=== PATIENT | female | born 1940 | race Caucasian/White ===

== ENCOUNTER → 2018-05-30 10:05 | Outpatient (CLI) | payer OTHER, SELFPAY | PROVIDERS: PCP Family Medicine; Visit Provider Physician Assistant | DX: R30.0 Dysuria (principal) | CPT/HCPCS: 87077; 87086; 87186 ==

== ENCOUNTER 2018-06-15 08:55 | Emergency (ER) | payer OTHER, SELFPAY ==
[2018-06-15 09:05] VITALS: BP 137/77; PULSE 88; RESP 13; TEMP 36.8; O2SAT 99
--- NOTE | 2018-06-15 09:21 | ED.FEMALEGU ---
HPI - Female Genitourinary General Chief complaint: Urogenital-Female Stated complaint: UTI Time Seen by Provider: 06/15/18 08:58 Source: patient Mode of arrival: ambulatory Limitations: no limitations History of Present Illness HPI Narrative: Patient is a 78-year-old female here for evaluation of urinary frequency, urgency and lower abdominal pain. Back on 05/30 patient was seen in the walk-in clinic here at [facility] for the urinary frequency and urgency. Was diagnosed with a urinary tract infection. Was sent home on Macrobid. That culture came back is greater than 100,000 colony-forming units that was segura sensitive. Patient states that she did take all of the antibiotics. She states that the since then she has continued to have the urinary frequency and urgency. No fevers. No change in bowel habits. She states that she ?always has diarrhea ?no back pain. No vomiting. She states she does have hemorrhoids and occasionally has blood in her stool. Over the past couple days she has had bilateral lower abdominal pain. Does have a history of diverticulitis. She states she does not remember if this feels like prior diverticulitis pain Related Data Home Medications Medication Instructions Recorded Confirmed latanoprost 1 drp OPHTH HS #0 09/09/16 06/15/18 multivitamin [Multiple Vitamins] 1 tab PO QDAY #0 09/09/16 06/15/18 calcium carbonate [Tums] 1 dose PO PRN PRN 06/15/18 06/15/18 Previous Rx's Medication Instructions Recorded ciprofloxacin HCl 500 mg PO BID 7 Days #14 tab 06/15/18 fluconazole [Diflucan] 100 mg PO DAILY #2 tab 06/15/18 metronidazole [Flagyl] 500 mg PO TID 7 Days #21 tab 06/15/18 Allergies Allergy/AdvReac Type Severity Reaction Status Date / Time No Known Drug Allergies Allergy Verified 05/30/18 09:35 Review of Systems Constitutional Denies fatigue and Denies fever(s) ENT Ears, Nose, Mouth, and Throat: Denies vertigo Cardiovascular Denies chest pain and Denies dyspnea Respiratory Denies dyspnea Gastrointestinal Gastrointestinal: Reports abdominal pain, Denies melena, Denies change in bowel habits, Denies constipation, Denies cramping, Reports diarrhea, Denies nausea and Denies vomiting Genitourinary Denies hematuria, Reports dysuria, Reports urinary urgency and Denies vaginal discharge Musculoskeletal Denies myalgias and Denies arthralgias Integumentary/Breasts Denies rash and Denies wounds Neurologic Denies confusion and Denies vertigo Psychiatric Denies confusion Endocrine Denies fatigue Hematologic/Lymphatic Denies easy bleeding and Denies easy bruising PFSH Medical History Gastroesophageal reflux disease (Acute) Surgical History No pertinent past surgical history (Acute) Social History Smoking Status: Never smoker alcohol intake: never Exam Initial Vital Signs Initial Vital Signs: Vital Signs Temperature 98.2 F 06/15/18 09:05 Pulse Rate 88 06/15/18 09:05 Respiratory Rate 13 06/15/18 09:05 Blood Pressure 137/77 H 06/15/18 09:05 Pulse Oximetry 99 06/15/18 09:05 Const General: cooperative, healthy appearing, comfortable, well developed, well groomed and No acute distress Orientation: alert, awake and oriented x3 HENMT Head: normal to inspection and normocephalic Resp Effort & Inspection: normal respiratory effort Auscultation: clear to auscultation bilaterally Cardio Rate: regular rate Rhythm: regular rhythm GI Inspection: non-distended Palpation: soft, No firm and No tender Skin Lesions: no lesions Rashes: no rashes Neuro General: alert and awake Speech: speech normal Extrem General: normal to inspection and capillary refill normal Psych Appearance: grossly normal and well kempt Course Orders Ordered: ED Orders 06/15/18 09:05 Urinalysis and Microscopic Stat Urine Culture Stat Vital Signs - 8 hr 06/15/18 09:05 Temperature 98.2 F Pulse Rate 88 Respiratory Rate 13 Blood Pressure 137/77 H Pulse Oximetry 99 MDM - Female Genitourinary Lab Data Attestation: I reviewed the patient's lab results. Lab Results 06/15/18 Range/Units 09:05 Urine Color Yellow Urine Appearance Clear Urine pH 5.0 (4.5-8.0) Ur Specific [place] 1.010 (1.000-1.035) Urine Protein Negative (Negative) Urine Glucose (UA) Negative (Normal) g/dL Urine Ketones Negative (NEGATIVE) Urine Occult Blood 1+ H (Negative) Urine Nitrate Negative (Negative) Urine Bilirubin Negative (NEGATIVE) Urine Urobilinogen 0.2 (0.2) E.U./dL Ur Leukocyte Esterase Negative (NEGATIVE) Urine RBC 0-1/hpf (0-5/HPF) Urine WBC 0-1/hpf (0-5/HPF) Urine Bacteria Occasional (0-1) (None) Ur Culture Indicated? Cult not indicated Micro UA Comment Not Reportable MDM Narrative Medical decision making narrative: Patient's urinalysis today is not convincing for urinary tract infection however she states she feels like this is a urinary tract infection. The infection that she had a couple weeks ago was pansensitive E coli. Patient also states that this may be a diverticulitis. She does not have any symptoms consistent with a yeast infection however this may also be the cause of her symptoms. After discussion with the patient will hold on a CT scan for now. Will send home with Cipro which would treat a UTI and also diverticulitis. Also sent home with Flagyl. Will also give a course of Diflucan. Patient was given return precautions. She expressed understanding and agreement with plan Discharge Plan Departure Patient Disposition: Home, Self-Care Clinical Impression: Dysuria, Abdominal pain Instructions: DI for Abdominal Pain-Adult, DI for Dysuria -- Adult Activity Restrictions/Additional Instructions: Take all the medications as directed. Call your primary care doctor for a follow-up. Return to the emergency department for any new symptoms, worsening symptoms, fevers, inability to tolerate oral intake, worsening abdominal pain, or any other concerning symptoms. Prescriptions: New fluconazole [Diflucan] 100 mg tablet 100 mg PO DAILY Qty: 2 RF: 0 metronidazole [Flagyl] 500 mg tablet 500 mg PO TID 7 Days Qty: 21 RF: 0 ciprofloxacin HCl 500 mg tablet 500 mg PO BID 7 Days Qty: 14 RF: 0 No Action multivitamin [Multiple Vitamins] 1 EACH tablet 1 tab PO QDAY Qty: 0 RF: 0 latanoprost 0.005 % drops 1 drp OPHTH HS Qty: 0 RF: 0 calcium carbonate [Tums] 200 mg calcium (500 mg) Tablet,Chewable 1 dose PO PRN PRN (Reason: Heartburn) RF: 0
[2018-06-15 10:02] LABS: Appearance Urine UA CLEAR; Bilirubin Urine UA NEGATIVE (NEGATIVE); Color Urine UA YELLOW; Glucose Urine UA NEGATIVE (Normal); Ketones Urine UA NEGATIVE (NEGATIVE); Leukocyte Esterase Urine UA NEGATIVE (NEGATIVE); Nitrite Urine UA Negative (Negative); Occult Blood Urine UA 1+ (Negative); Protein Urine UA NEGATIVE (Negative); Urobilinogen Urine UA 0.2 E.U./dL (0.2)
[2018-06-15 10:21] LABS: Bacteria Urine Occasional (0-1); Culture Indicated Urine Cult Not Indicated; RBC Urine 0-1/HPF (0-5/HPF); WBC Urine 0-1/HPF (0-5/HPF)
== END 2018-06-15 12:20 | disposition home or self-care (01) ==
PROVIDERS: Emergency Provider Emergency Medicine; PCP Family Medicine
DX: R30.0 Dysuria (principal); R10.9 Unspecified abdominal pain
CPT/HCPCS: 81001; 87086; 99283

== ENCOUNTER 2018-06-25 14:13 | Emergency (ER) | payer OTHER, SELFPAY ==
[2018-06-25 14:26] VITALS: BP 119/65; PULSE 80; RESP 16; TEMP 37.3; O2SAT 95
[2018-06-25 17:32] VITALS: TEMP 37.9
--- NOTE | 2018-06-25 17:46 | ED_ITS ---
HPI - Extremity Problem General Chief complaint: Extremity Problem,Nontraumatic Stated complaint: PAIN IN LEFT LEG DIVERTICULITIS & UTI 2 WKS AGO Time Seen by Provider: 06/25/18 16:09 Source: patient and family Mode of arrival: ambulatory Limitations: no limitations History of Present Illness HPI Narrative: Patient is a 78-year-old female who I evaluated here in the emergency department several days ago diagnosed with diverticulitis and sent home with Cipro and Flagyl. Couple days later the patient's called the emergency department and I talk with him over the phone about their concerns of Cipro and possible ligamentous problems. Patient has never had any issues with this in the past. Patient returns today with her reporting an improvement of her abdominal pain however having left knee pain, right hip pain , left ankle pain. No specific trauma. No fevers. No changes in the skin. Uncertain as to how long the symptoms have been there but does not appear to be more than a day or so. They were concerned about a reaction to the Cipro. Related Data Home Medications Medication Instructions Recorded Confirmed latanoprost 1 drp [facility] #0 09/09/16 06/25/18 multivitamin [Multiple Vitamins] 1 tab PO QDAY #0 09/09/16 06/25/18 calcium carbonate [Tums] 1 dose PO PRN PRN 06/15/18 06/25/18 ciprofloxacin HCl [Cipro] 500 mg PO BID 06/25/18 06/25/18 lactobacillus combination no.4 3,000 mmu cells PO DAILY 06/25/18 06/25/18 [Probiotic] metronidazole [Flagyl] 500 mg PO BID 06/25/18 06/25/18 Previous Rx's Medication Instructions Recorded fluconazole [Diflucan] 100 mg PO DAILY #2 tab 06/15/18 Allergies Allergy/AdvReac Type Severity Reaction Status Date / Time No Known Drug Allergies Allergy Verified 06/25/18 14:20 Review of Systems Constitutional Denies fever(s) and Denies frequent falls ENT Ears, Nose, Mouth, and Throat: Denies dizziness Cardiovascular Denies chest pain and Denies dyspnea Respiratory Denies dyspnea Gastrointestinal Gastrointestinal: Denies abdominal pain, Reports diarrhea (This is chronic for her) and Denies nausea Genitourinary Denies dysuria Musculoskeletal Comments: Left knee, left ankle, right hip pain Integumentary/Breasts Denies rash and Denies skin pain Neurologic Denies dizziness and Denies frequent falls Hematologic/Lymphatic Denies easy bruising [facility] Medical History Diverticulitis (Acute) Gastroesophageal reflux disease (Acute) Hemorrhoids (Acute) Surgical History No pertinent past surgical history (Acute) Social History Smoking Status: Never smoker alcohol intake: never Exam Initial Vital Signs Initial Vital Signs: Vital Signs Temperature 99.1 F 06/25/18 14:26 Pulse Rate 80 06/25/18 14:26 Respiratory Rate 16 06/25/18 14:26 Blood Pressure 119/65 06/25/18 14:26 Pulse Oximetry 95 06/25/18 14:26 Const General: cooperative, comfortable, well developed, well groomed and No acute distress Orientation: alert, awake and oriented x3 HENMT Head: normal to inspection and normocephalic Resp Effort & Inspection: normal respiratory effort GI Inspection: non-distended Palpation: soft, No firm and No tender Skin Lesions: no lesions Rashes: no rashes Neuro General: alert, awake and oriented x3 Speech: speech normal Motor: muscle tone normal throughout Sensory Exam: no sensory deficits noted Extrem Other: Left hip unremarkable, patient with tenderness about her left knee on the medial lateral joint lines. Not tender over the quadriceps tendon or patellar tendon. No instability. No overlying redness. Patient also reports tenderness along the medial malleolus. No other right ankle or right foot tenderness. No instability. Patient also reports tenderness over the greater trochanter on the right. No groin tenderness. Rest of her right lower extremity unremarkable. Psych Appearance: grossly normal and well kempt Course Vital Signs - 8 hr 06/25/18 14:26 06/25/18 17:32 Temperature 99.1 F 100.2 F H Pulse Rate 80 Respiratory Rate 16 Blood Pressure 119/65 Pulse Oximetry 95 MDM - Extremity (Nontraumatic) MDM Narrative Medical decision making narrative: No trauma. No overlying skin redness. I have low concern for cellulitis. I also have low concern for fractures secondary to the lack of trauma and also her physical exam. Patient has fairly vague symptoms of her left knee and left ankle and right hip. This could be tendon issue secondary to the Cipro however the patient did complete the course of this medication yesterday. Had a long discussion with the patient and her regarding her symptoms. Will hold on further workup for now. Informed them that if this was secondary to the Cipro that the treatment would be to stop taking the Cipro which she has already done. Encouraged her to contact her primary care doctor for a follow-up to make sure that her symptoms are improving. She was given return precautions. She expressed understanding and agreement with plan. Discharge Plan Departure Patient Disposition: Home Clinical Impression: Joint pain Discharge Date/Time: 06/25/18 18:00 Interventions: ED Discharge Assessment Last Done: 06/25/18 18:08 Instructions: How To Perform RICE (Rest, Ice, Compress, Elevate) Activity Restrictions/Additional Instructions: Recommend that you contact your primary care doctor for a follow-up. Return to the emergency department for worsening pain, redness over your joints, fevers, or any other concerning symptoms. Continue your other medications as directed. Prescriptions: No Action multivitamin [Multiple Vitamins] 1 EACH tablet 1 tab PO QDAY Qty: 0 RF: 0 latanoprost 0.005 % drops 1 drp OPHTH HS Qty: 0 RF: 0 calcium carbonate [Tums] 200 mg calcium (500 mg) Tablet,Chewable 1 dose PO PRN PRN (Reason: Heartburn) RF: 0 fluconazole [Diflucan] 100 mg tablet 100 mg PO DAILY Qty: 2 RF: 0 ciprofloxacin HCl [Cipro] 500 mg Tablet 500 mg PO BID RF: 0 metronidazole [Flagyl] 500 mg Tablet 500 mg PO BID RF: 0 lactobacillus combination no.4 [Probiotic] 3 billion cell Capsule 3,000 mmu cells PO DAILY RF: 0
[2018-06-25 18:08] VITALS: RESP 18; O2SAT 98
== END 2018-06-25 18:00 | disposition home or self-care (01) ==
PROVIDERS: Emergency Provider Emergency Medicine; PCP Family Medicine
DX: M25.562 Pain in left knee (principal)
CPT/HCPCS: 99282